=== PATIENT | male | born 1995 | race Caucasian/White ===

== ENCOUNTER 2018-11-10 17:14 | Observation (INO) | payer OTHER ==
[2018-11-10 17:31] VITALS: BMI 30.4
[2018-11-10] MEDS ORDERED: SODIUM CHLORIDE 1,000 ML IV STA (17:46)
--- NOTE | 2018-11-10 17:50 | PDOC ---
Attending Attestation - [facility] HPI: 11/10/18 18:29 The patient is a 23 year old male, with no significant past medical history, who presents to the emergency department via EMS after passing out on the train just prior to presentation. Today, he reports that he was on his way to into the city on the train when he felt dizzy and attempted to call 911. Before he was able to do so, he passed out and the next thing he remembers is EMS being on scene. He was subsequently brought to the emergency department for evaluation. The patient states that he does not remember if he hit his head when he passed out but notes that he woke up on the floor of the train. The patient reports that he was at a [employer] last night and was drinking heavily and does note that he felt some numbness of the fingers on his right hand upon waking up this morning. Currently in the emergency department, the patient is awake, alert and is following all commands. Documentation prepared by Miesha Pena, acting as medical billing clerk for Lurdes Alvarez MD. - Physicial Exam PE: 11/10/18 18:17 GENERAL: Alcohol on breath. Awake, alert, and fully oriented, in no acute distress. HEAD: No signs of trauma. EYES: PERRLA, EOMI, sclera anicteric, conjunctiva clear. ENT: Auricles normal inspection, hearing grossly normal, nares patent, oropharynx clear without exudates. Moist mucosa. NECK: Normal ROM, supple, no lymphadenopathy, JVD, or masses. LUNGS: Breath sounds equal, clear to auscultation bilaterally. No wheezes, and no crackles. HEART: Regular rate and rhythm, normal S1 and S2, no murmurs, rubs or gallops. ABDOMEN: Soft, nontender, normoactive bowel sounds. No guarding, no rebound. No masses. EXTREMITIES: Normal range of motion, no edema. No clubbing or cyanosis. No cords , erythema, or tenderness. NEUROLOGICAL: Subjective sensory deficits. Cranial nerves II through XII intact. Normal speech, follows all commands appropriately. Moving all extremities spontaneously. Strength is 5/5 in both the upper and lower extremities, no motor deficits. SKIN: Warm, dry, normal turgor, no rashes or lesions noted. Documentation prepared by Miesha Pena, acting as medical billing clerk for Lurdes Alvarez MD. <Miesha Stahl - Last Filed: 11/10/18 18:34> - Resident Resident Name: Marisa Reeves - ED Attending Attestation I have performed the following: I have examined & evaluated the patient, The case was reviewed & discussed with the resident, I agree w/resident's findings & plan, Exceptions are as noted - Medical Decision Making 11/10/18 21:22 23 yo male fainted on the train going from [place] to [facility]. Police were called and the patient was brought in [facility] ct scan head negative for any acute intracranial pathology c spine is negative for any acute fracture or subluxation alcohol level was only seven tox screen negative cbc is normal chemistries :normal renal function,normal glucose trop negative ekg NSR @ 70 bpm, 11/10/18 22:48 imp syncope vs ingestion of drug of abuse not found on our tox screening pt admitted <Lurdes Alvarez - Last Filed: 11/10/18 22:48>
[2018-11-10 18:21] LABS: BASO % 0.7 % (0-2.0); EOS % 2.6 % (0-4.5); HEMATOCRIT 46.1 % (35.4-49); HEMOGLOBIN 16.1 GM/dL (11.7-16.9); LYMPH % 19.3 % (8-40); MCH 32.6 pg (25.7-33.7); MCHC 34.9 g/dl (32.0-35.9); MEAN CELL VOLUME 93.5 fl (80-96); MEAN PLT VOLUME 9.7 fl (7.5-11.1); NEUT % 71.4 % (42.8-82.8); PLATELET COUNT 234 K/MM3 (134-434); RBC 4.93 M/mm3 (4.00-5.60); RDW 13.3 % (11.9-15.9)
--- NOTE | 2018-11-10 18:32 | PDOC ---
History of Present Illness - General Chief Complaint: Weakness Stated Complaint: SICK Time Seen by Provider: 11/10/18 17:22 History Source: Patient - History of Present Illness Initial Comments: 11/10/18 18:44 Pt is a 23yo M with PMH of asthma BIBA for syncope. Pt said he was [place] a [place] [facility] when he started to feel lightheaded. He stood up to call 911 but he passed out. Pt thinks he was not down for long but he woke up on the floor. He said at this time he felt "weird" and felt his vision going down. Pt states he drank a pint of vodka last night, denies drinking this morning, denies other drug use. Pt denies chest pain, SOB, abdominal pain, n/v/d, headache, changes in vision. He endorses vertigo since the fall which comes on and off. He also is complaining of R arm numbness, mainly in the 4th and 5th digits and going up the arm. PMD: none PMH: asthma PSH: none Allergies: nkda Social: alcohol use Past History - Past Medical History Allergies/Adverse Reactions: Allergies Allergy/AdvReac Type Severity Reaction Status Date / Time No Known Allergies Allergy Verified 11/10/18 17:54 Home Medications: Ambulatory Orders NK [No Known Home Medication] 11/10/18 Asthma: Yes COPD: No CHF: No DVT: No - Suicide/Smoking/Psychosocial Hx Smoking History: Current every day smoker Have you smoked in the past 12 months: No Number of Cigarettes Smoked Daily: 2 Information on smoking cessation initiated: No Hx Alcohol Use: No Drug/Substance Use Hx: No Review of Systems - Review of Systems Constitutional: No: Chills, Fever, Weakness HEENTM: No: Recent change in vision, Double Vision Respiratory: No: Cough, Shortness of Breath Cardiac (ROS): Yes: Chest Tightness. No: Chest Pain, Lightheadedness, Palpitations ABD/GI: No: Constipated, Diarrhea, Nausea, Rectal Bleeding, Vomiting, Abdominal cramping, Tarry Stools : No: Burning, Dysuria Musculoskeletal: No: Back Pain, Joint Pain, Muscle Pain, Neck Pain Integumentary: No: Bruising, Dryness, Erythema Neurological: Yes: See HPI, Numbness. No: Headache, Paresthesia, Tingling, Weakness *Physical Exam - Vital Signs Last Vital Signs Temp Pulse Resp BP Pulse Ox 98.7 F 78 16 135/84 100 11/10/18 17:15 18 17:15 18 17:15 18 17:15 11/10/18 17:15 - Physical Exam General Appearance: Yes: Nourished, Appropriately Dressed. No: Apparent Distress HEENT: positive: EOMI, KARLA, Normal ENT Inspection, Pharynx Normal Neck: positive: Trachea midline, Supple. negative: Lymphadenopathy (R), Lymphadenopathy (L) Respiratory/Chest: positive: Lungs Clear, Normal Breath Sounds. negative: Crackles, Rales, Rhonchi, Stridor, Wheezing Cardiovascular: positive: Regular Rhythm, Regular Rate, S1, S2. negative: Edema , JVD, Murmur Vascular Pulses: Carotid (R): 2+, Carotid (L): 2+, Dorsalis-Pedis (R): 2+, Doralis-Pedis (L): 2+ Gastrointestinal/Abdominal: positive: Normal Bowel Sounds, Soft. negative: Distended, Guarding, Rebound, Tenderness Musculoskeletal: positive: Other (Full ROM of R hand and arm. No focal weakness. ). negative: CVA Tenderness, Decreased Range of Motion Extremity: positive: Normal Capillary Refill, Pelvis Stable. negative: Pedal Edema, Swelling, Calf Tenderness Integumentary: positive: Normal Color, Dry, Warm Neurologic: positive: human intelligence II-XII NML intact, Fully Oriented, Alert, Normal Mood/ Affect, Normal Response, Motor Strength 5/5 Moderate Sedation - Procedure Monitoring Vital Signs: Procedure Monitoring Vital Signs Temperature 98.7 F 11/10/18 17:15 Pulse Rate 78 11/10/18 17:15 Respiratory Rate 16 11/10/18 17:15 Blood Pressure 135/84 11/10/18 17:15 O2 Sat by Pulse Oximetry (%) 100 11/10/18 17:15 ED Treatment Course - LABORATORY CBC & Chemistry Diagram: 11/10/18 18:00 11/10/18 18:00 - ADDITIONAL ORDERS Additional order review: Laboratory Results 11/10/18 17:50 Alcohol, Quantitative Cancelled 11/10/18 18:00 RBC 4.93 MCV 93.5 MCHC 34.9 RDW 13.3 MPV 9.7 Neutrophils % 71.4 Lymphocytes % 19.3 Monocytes % 6.0 Eosinophils % 2.6 Basophils % 0.7 - RADIOLOGY Radiology Studies Ordered: Category Date Time Status CERVICAL SPINE CT W/O CONTR [CT] Stat CT Scan 11/10/18 17:[address] WITHOUT CONTRAST [CT] Stat CT Scan 11/10/18 17:47 Ordered Medical Decision Making - Medical Decision Making 11/10/18 18:32 Pt is a 23yo M with PMH of asthma BIBA for syncope. Pt said he was [place] a [place] [facility] when he started to feel lightheaded. He stood up to call 911 but he passed out. Pt thinks he was not down for long but he woke up on the floor. He said at this time he felt "weird" and felt his vision going down. Pt states he drank a pint of vodka last night, denies drinking this morning, denies other drug use. Pt denies chest pain, SOB, abdominal pain, n/v/d, headache, changes in vision. He endorses vertigo since the fall which comes on and off. He also is complaining of R arm numbness, mainly in the 4th and 5th digits and going up the arm. Vitals: wnl PE: normal neurological exam, no vertebral tenderness. No nystagmus, vertigo not illicited with eye movements or head movements, full ROM and strength R arm and hand. endorses numbness in R 4th and 5th digit. DDx: syncope (vasovagal v. orthostatic v. arrhythmia v. neurologic), peripheral neuropathy Will order utox, alcohol level, basic labs. and Fluids. EKG ordered. EKG: nsr with sinus arrhythmia. Leads 2 and aVF show electrical activity in R wave. refusing fluids at this time. 11/10/18 19:29 Labs pending. Pt signed out to Dr. Kolb *DC/Admit/Observation/Transfer Diagnosis at time of Disposition: Syncope Qualifiers: Syncope type: unspecified Qualified Code(s): R55 - Syncope and collapse - Referrals - Patient Instructions - Post Discharge Activity
[2018-11-10 19:53] LABS: ALBUMIN 4.4 g/dl (3.4-5.0); ALK PHOS 109 U/L (45-117); ANION GAP 6 MMOL/L (8-16); BILIRUBIN,TOTAL 0.5 mg/dL (0.2-1); BLOOD UREA NITROGEN 13 mg/dL (7-18); CALCIUM 8.8 mg/dL (8.5-10.1); CHLORIDE 105 mmol/L (98-107); CO2 26 mmol/L (21-32); GLUCOSE,RANDOM 82 mg/dL (74-106); SGPT/ALT 33 U/L (13-61); SODIUM 137 mmol/L (136-145)
[2018-11-10 20:14] LABS: MAGNESIUM 2.1 mg/dL (1.8-2.4); SGOT/AST 34 U/L (15-37)
[2018-11-10 20:42] LABS: COCAINE, UR NEGATIVE ng/ml (CUTOFF=300); METHADONE, UR NEGATIVE ng/ml (CUTOFF=300); OPIATES, URI NEGATIVE ng/ml (CUTOFF=300); PHENCYCLIDINE,URINE NEGATIVE ng/ml (CUTOFF=25); URINE AMPHETAMINES NEGATIVE ng/ml (CUTOFF=500); URINE BARBITURATES NEGATIVE ng/ml (CUTOFF=200); URINE BENZODIAZEPINES NEGATIVE ng/ml (CUTOFF=200)
--- NOTE | 2018-11-10 22:17 | PN ---
Teaching Attending Note Name of Resident: Nico Jasmine ATTENDING PHYSICIAN STATEMENT I saw and evaluated the patient. I reviewed the resident's note and discussed the case with the resident. I agree with the resident's findings and plan as documented. SUBJECTIVE: Seen and examined; please see resident note for further documentation. In essence, this patient had syncope when riding the train after drinking a bottle of vodka; he stated was yesterday but his EtOH was + in ER. He had 2 episodes so came in for assessment. No h/o WPW in family. EKG with likely brisk septal depolarization and normal [place] and QRS intervals. There was concern for dropped beat on tele. No CP, SOB, etc. 10 sys ROS done and neg aside HPI PMH and PSH reviewed FH asked and noncontributory Socially pending Utox, +EtOh Medications reviewed OBJECTIVE: VS, labs, imaging reviewed RRR s1/2 no mgr Lungs CTAB w/ sym exp CN2-12 wnl, no fnd Normal mood, appropriate behavior Labs unremarkable EKG shows NSR with unremarkable intervals with what appears to be brisk septal depolarization Tele reviewed ASSESSMENT AND PLAN: Patient presents with syncope after drinking alcohol; there was concern if he had WPW or dropped beats 1) Syncope -Suspecting potential alcohol-contribution given the history and +EtOH level. He had a L of fluid before orthostatics could be checked making them less reliable. -WPW less likley given the normal AZ interval, etc. Brisk septal depolarization can be construed as slurring; argues against WPW alongside the intervals. -Dropped beats can occur in nonpathological matter; will monitor tele overnight and d/w CV. May need holter at home. 2) EtOH Use -Recommend stopping drinking. Full Code
--- NOTE | 2018-11-10 22:21 | HP ---
CHIEF COMPLAINT: syncope PCP: HISTORY OF PRESENT ILLNESS: Patient is a 23 y/o M w/ PMHx asthma, controlled w/ rarely used albuterol inhaler, p/w episode of syncope while traveling on train from [place] to [facility] earlier today. Reports feeling warm just prior to event and losing consciousness. Was not disoriented after, denies convulsions, tongue-biting, incontinence. Denies CP, SOB. Has never had similar episode previously. Does report intermittent numbness of the 4th digit of the hand b/l (but not concurrently). Otherwise no further associated symptoms, ROS negative. Reports drinking 1 pint of vodka the previous night. Received 1L NS bolus in ED. Labs are unremarkable, UTox negative, alcohol level 7. CT head and CT c-spine both negative. EKG demonstrates delta waves and dropped beat in lead II, however w/ normal intervals concern for WPW is low. ER course was notable for: (1) EKG: delta waves and dropped beat in lead II (2) imaging negative (3) labs wnl Recent Travel: PAST MEDICAL HISTORY: As per HPI PAST SURGICAL HISTORY: As per HPI Social History: Smoking: Denies Alcohol: Yes Drugs: Denies Family History: Allergies No Known Allergies Allergy (Verified 11/10/18 17:54) HOME MEDICATIONS: Home Medications Medication Instructions Recorded NK [No Known Home Medication] 11/10/18 REVIEW OF SYSTEMS PHYSICAL EXAMINATION Vital Signs - 24 hr 11/10/18 11/10/18 17:15 21:25 Temperature 98.7 F 98.8 F Pulse Rate 78 Pulse Rate [ 69 Left Apical] Respiratory 16 18 Rate Blood Pressure 135/84 Blood Pressure 125/71 [Left] O2 Sat by Pulse 100 98 Oximetry (%) GENERAL: A&Ox3, NAD HEAD: NC/AT EYES: PERRLA, EOMI EARS, NOSE, THROAT: MMM NECK: Normal range of motion, supple without lymphadenopathy, JVD, or masses. LUNGS: CTA b/l HEART: Premature/arrhythmic beat every ~8-10 cardiac cycles, normal rate, no m/r /g ABDOMEN: +bs, soft, NT, ND MUSCULOSKELETAL: Normal range of motion at all joints. No bony deformities or tenderness. No CVA tenderness. UPPER EXTREMITIES: 2+ pulses, warm, well-perfused. No cyanosis. No clubbing. No peripheral edema. LOWER EXTREMITIES: 2+ pulses, warm, well-perfused. No calf tenderness. No peripheral edema. NEUROLOGICAL: senior database engineer, motor, sensory systems w/o focal deficit PSYCHIATRIC: Cooperative. Good eye contact. Appropriate mood and affect. SKIN: Warm, dry, normal turgor, no rashes or lesions noted, normal capillary refill. Laboratory Results - last 24 hr 11/10/18 11/10/18 11/10/18 17:50 18:00 18:00 WBC 9.0 RBC 4.93 Hgb 16.1 Hct 46.1 MCV 93.5 MCH 32.6 MCHC 34.9 RDW 13.3 Plt Count 234 MPV 9.7 Absolute Neuts (auto) 6.4 Neutrophils % 71.4 Lymphocytes % 19.3 Monocytes % 6.0 Eosinophils % 2.6 Basophils % 0.7 Nucleated RBC % 0 Sodium Cancelled Potassium Cancelled Chloride Cancelled Carbon Dioxide Cancelled Anion Gap Cancelled BUN Cancelled Creatinine Cancelled Creat Clearance w eGFR Cancelled Random Glucose Cancelled Calcium Cancelled Magnesium Cancelled Total Bilirubin Cancelled AST Cancelled ALT Cancelled Alkaline Phosphatase Cancelled Creatine Kinase Creatine Kinase Index CK-MB (CK-2) Troponin I Total Protein Cancelled Albumin Cancelled Opiates Screen Methadone Screen Barbiturate Screen Phencyclidine Screen Ur Amphetamines Screen MDMA (Ecstasy) Screen Benzodiazepines Screen Cocaine Screen U Marijuana (THC) Screen Alcohol, Quantitative Cancelled 11/10/18 11/10/18 11/10/18 18:00 18:16 18:38 WBC RBC Hgb Hct MCV MCH MCHC RDW Plt Count MPV Absolute Neuts (auto) Neutrophils % Lymphocytes % Monocytes % Eosinophils % Basophils % Nucleated RBC % Sodium 137 Potassium 5.0 Chloride 105 Carbon Dioxide 26 Anion Gap 6 L BUN 13 Creatinine 1.0 Creat Clearance w eGFR > 60 Random Glucose 82 Calcium 8.8 Magnesium 2.1 Total Bilirubin 0.5 AST 34 ALT 33 Alkaline Phosphatase 109 Creatine Kinase Cancelled Cancelled 375 H Creatine Kinase Index 0.5 CK-MB (CK-2) 1.9 Troponin I Cancelled Cancelled < 0.02 Total Protein 8.0 Albumin 4.4 Opiates Screen Methadone Screen Barbiturate Screen Phencyclidine Screen Ur Amphetamines Screen MDMA (Ecstasy) Screen Benzodiazepines Screen Cocaine Screen U Marijuana (THC) Screen Alcohol, Quantitative 22.5 H 7.0 H 11/10/18 20:14 WBC RBC Hgb Hct MCV MCH MCHC RDW Plt Count MPV Absolute Neuts (auto) Neutrophils % Lymphocytes % Monocytes % Eosinophils % Basophils % Nucleated RBC % Sodium Potassium Chloride Carbon Dioxide Anion Gap BUN Creatinine Creat Clearance w eGFR Random Glucose Calcium Magnesium Total Bilirubin AST ALT Alkaline Phosphatase Creatine Kinase Creatine Kinase Index CK-MB (CK-2) Troponin I Total Protein Albumin Opiates Screen Negative Methadone Screen Negative Barbiturate Screen Negative Phencyclidine Screen Negative Ur Amphetamines Screen Negative MDMA (Ecstasy) Screen Negative Benzodiazepines Screen Negative Cocaine Screen Negative U Marijuana (THC) Screen Negative Alcohol, Quantitative ASSESSMENT/PLAN: 23 y/o M w/ PMHx asthma not currently active, p/w first time incident of syncope. #syncope -no evidence of induction by illicit substances -no relevant medication use -EKG showing dropped beat and delta waves in lead II, however [place] and QRS nl, more likely brisk septal depolarization than WPW -repeat EKG pending -imaging negative -cardiology consulted -cardiac monitoring -repeat routine labs -no further intervention at this time #FEN -no IVF -monitor lytes -regular diet #PPx -DVT: SCDs -GI: not indicated #code -full #dispo -tele obs Visit type - Emergency Visit Emergency Visit: Yes ED Registration Date: 11/10/18 Care time: The patient presented to the Emergency Department on the above date and was hospitalized for further evaluation of their emergent condition. - New Patient This patient is new to me today: Yes Date on this admission: 11/11/18 - Critical Care Critical Care patient: No
[2018-11-11 06:38] LABS: INR 0.99 (0.83-1.09); PROTHROMBIN TIME (PATIENT) 11.7 SEC (9.7-13.0)
[2018-11-11 06:41] LABS: ACTIVATED PTT 28.9 SECONDS (25.2-36.5)
[2018-11-11 07:02] LABS: ANION GAP 6 MMOL/L (8-16); BLOOD UREA NITROGEN 16 mg/dL (7-18); CALCIUM 8.3 mg/dL (8.5-10.1); CHLORIDE 106 mmol/L (98-107); CO2 27 mmol/L (21-32); GLUCOSE,RANDOM 93 mg/dL (74-106); PHOSPHOROUS 4.9 mg/dL (2.5-4.9); POTASSIUM 4.1 mmol/L (3.5-5.1); SODIUM 139 mmol/L (136-145)
[2018-11-11 09:27] LABS: BASO % 0.5 % (0-2.0); EOS % 3.4 % (0-4.5); HEMATOCRIT 44.3 % (35.4-49); HEMOGLOBIN 14.4 GM/dL (11.7-16.9); MCH 30.9 pg (25.7-33.7); MCHC 32.6 g/dl (32.0-35.9); MEAN CELL VOLUME 94.6 fl (80-96); MEAN PLT VOLUME 9.8 fl (7.5-11.1); MONO % 7.9 % (3.8-10.2); NEUT % 53.2 % (42.8-82.8); PLATELET COUNT 205 K/MM3 (134-434); RBC 4.68 M/mm3 (4.00-5.60); RDW 13.5 % (11.9-15.9); WHITE BLOOD COUNT 7.4 K/mm3 (4.0-10.0)
--- NOTE | 2018-11-11 09:49 | EKG ---
Test Reason : Blood Pressure : / mmHG Vent. Rate : 081 BPM Atrial Rate : 081 BPM P-R Int : 166 ms QRS Dur : 118 ms QT Int : 382 ms P-R-T Axes : 046 009 016 degrees QTc Int : 443 ms NORMAL SINUS RHYTHM RSR' OR QR PATTERN IN V1 SUGGESTS RIGHT VENTRICULAR CONDUCTION DELAY NONSPECIFIC ST AND T WAVE ABNORMALITY ABNORMAL ECG NO PREVIOUS ECGS AVAILABLE Confirmed by MARY ELLEN SHAHID MD ([id number]) on 11/11/2018 9:49:12 AM Referred By: Confirmed By:MARY ELLEN SHAHID MD
--- NOTE | 2018-11-11 09:51 | EKG ---
Test Reason : Blood Pressure : / mmHG Vent. Rate : 070 BPM Atrial Rate : 070 BPM P-R Int : 168 ms QRS Dur : 098 ms QT Int : 396 ms P-R-T Axes : 031 018 022 degrees QTc Int : 427 ms NORMAL SINUS RHYTHM WITH SINUS ARRHYTHMIA ST ELEVATION, CONSIDER EARLY REPOLARIZATION BORDERLINE ECG NO PREVIOUS ECGS AVAILABLE Confirmed by KLEBER DOSS, MARY ELLEN ([id number]) on 11/11/2018 9:50:37 AM Referred By: Confirmed By:MARY ELLEN SHAHID MD
--- NOTE | 2018-11-11 10:15 | CON.CARD ---
Consult Consult Specialty:: Cardiology Referred by:: Hospitalist Medicine Reason for Consultation:: Syncope - History of Present Illness Chief Complaint: Syncope History of Present Illness: Patient is a 23 year old male h/o asthma presented with syncope when riding the train after drinking a bottle of vodka, he described prodromal sxs of near syncope, flushing and diaphoresis, patient denies exertional chest pain, palpitations, syncope, orthopnea, PND or LE edema, no events on telemetry thus far. 10 sys ROS done and neg aside HPI PMH and PSH reviewed FH asked and neg for premature CAD or SCD Socially pending Utox, +EtOh Medications reviewed - History Source History Provided By: Patient Limitations to Obtaining History: No Limitations - Alcohol/Substance Use Hx Alcohol Use: No - Smoking History Smoking history: Current every day smoker Have you smoked in the past 12 months: No Aproximately how many cigarettes per day: 2 Home Medications - Allergies Allergies/Adverse Reactions: Allergies Allergy/AdvReac Type Severity Reaction Status Date / Time No Known Allergies Allergy Verified 11/10/18 17:54 - Home Medications Home Medications: Ambulatory Orders NK [No Known Home Medication] 11/10/18 Review of Systems - Review of Systems Constitutional: reports: Diaphoresis Neurological: reports: Dizziness, Syncope Vital Signs: Vital Signs Temperature 97.7 F 11/11/18 08:48 Pulse Rate 63 11/11/18 08:48 Respiratory Rate 14 11/11/18 08:49 Blood Pressure 123/76 11/11/18 08:48 O2 Sat by Pulse Oximetry (%) 97 11/11/18 08:49 Constitutional: Yes: No Distress, Calm, Thin Neck: Yes: Supple Respiratory: Yes: Regular, CTA Bilaterally Gastrointestinal: Yes: Normal Bowel Sounds, Soft Cardiovascular: Yes: Regular Rate and Rhythm JVD: No Carotid Bruit: No Heart Sounds: Yes: S1, S2 Edema: No - Other Data Labs, Other Data: CBC, BMP 11/11/18 05:30 11/11/18 05:30 INR, PTT INR 0.99 (0.83-1.09) 11/11/18 05:30 Troponin, BNP 11/10/18 11/10/18 11/10/18 18:00 18:16 18:38 Troponin I Cancelled Cancelled < 0.02 11/11/18 11/11/18 00:15 05:30 Troponin I < 0.02 < 0.02 Troponin, BNP 11/10/18 11/10/18 11/10/18 18:00 18:16 18:38 Troponin I Cancelled Cancelled < 0.02 11/11/18 11/11/18 00:15 05:30 Troponin I < 0.02 < 0.02 NSR @ 70 with sinus arrhythmia and early repolarization Tele: SR, PAC no pauses Imaging - Results Cat Scan: Report Reviewed (No acute changes) Problem List - Problems (1) Alcohol intoxication Code(s): F10.929 - ALCOHOL USE, UNSPECIFIED WITH INTOXICATION, UNSPECIFIED Qualifiers: Complication of substance-induced condition: uncomplicated Qualified Code(s ): F10.920 - Alcohol use, unspecified with intoxication, uncomplicated (2) Premature atrial contraction Code(s): I49.1 - ATRIAL PREMATURE DEPOLARIZATION (3) Syncope Code(s): R55 - SYNCOPE AND COLLAPSE Qualifiers: Syncope type: vasovagal syncope Qualified Code(s): R55 - Syncope and collapse Assessment/Plan 1. Syncope preceded by typical prodromal symptoms c/w vasovagal etiology in context of 2. Alcohol intoxication 3. Asthma P:1. Symptoms improved after volume rescucitation, monitor telemetry and f/u echo results already ordered 2. ETOH abstinence recommended 3. Counselled on abortive maneuvers once prodromal sxs have been experienced 4. Further recommendations to follow after review of above results 5. Thank you for consultative opportunity
--- NOTE | 2018-11-11 10:59 | ECHO ---
Name: KNOWLEDGE TIFFANY Exam:Adult Echocardiogram Study Date: 11/11/2018 09:10 AM Age: 23 yrs Reason For Study: SYNCOPE Height: 76 in Weight: 250 lb BSA: 2.4 m2 MMode/2D Measurements & Calculations IVSd: 0.98 cm Ao root diam: 3.3 cm LVIDd: 5.5 cm LA dimension: 3.6 cm LVIDs: 3.6 cm LVPWd: 0.98 cm EDV(Teich): 146.5 ml LAV (MOD-bp): 53.4 ml ESV(Teich): 55.1 ml Doppler Measurements & Calculations MV E max kodak: 81.0 cm/sec TR max kodak: 211.4 cm/sec MV A max kodak: 45.6 cm/sec TR max P.9 mmHg MV E/A: 1.8 MV dec time: 0.17 sec Med Peak E' Kodak: 12.2 cm/sec PI Vmax: 183.2 cm/sec Med E/e': 6.6 Lat Peak E' Kodak: 16.0 cm/sec Lat E/e': 5.1 Procedure A complete two-dimensional transthoracic echocardiogram was performed (2D, M-mode, Doppler and color flow Doppler). Left Ventricle The left ventricle is normal in size. Left ventricular systolic function is normal. Ejection Fraction = 60- 65%. No regional wall motion abnormalities noted. Right Ventricle The right ventricle is normal size. The right ventricular systolic function is normal. Atria The left atrial size is normal. LA volume index is 22 ml/m2. Right atrial size is normal. Mitral Valve There is mild mitral annular calcification. There is no mitral regurgitation noted. Tricuspid Valve The tricuspid valve is normal in structure and function. There is mild tricuspid regurgitation. Right ventricular systolic pressure is normal. Aortic Valve The aortic valve is normal in structure and function. No aortic regurgitation is present. Pulmonic Valve The pulmonic valve is not well visualized. Great Vessels The aortic root is normal size. Pericardium/Pleura There is no pericardial effusion. Interpretation Summary The left ventricle is normal in size. Left ventricular systolic function is normal. No regional wall motion abnormalities noted. Ejection Fraction = 60-65%. The right ventricular systolic function is normal. The left atrial size is normal. Right atrial size is normal. There is mild mitral annular calcification. There is mild tricuspid regurgitation. There is no pericardial effusion. No previous study is available for comparison Prosper Alvarez MD 11/11/2018 10:58 AM
--- NOTE | 2018-11-11 16:14 | DS ---
Physical Exam: SUBJECTIVE: Patient seen and examined at bedside. No overnight events. Denies acute complaints. Denies recurrence of lightheadedness, or any syncopal episodes. OBJECTIVE: Vital Signs Period Temp Pulse Resp BP Sys/Acuña Pulse Ox Last 24 Hr 97.7 F-98.8 F 63-86 14-20 123-159/68-93 97-100 PHYSICAL EXAM GENERAL: The patient is awake, alert, and fully oriented, in no acute distress. HEAD: Normal with no signs of trauma. EYES: PERRL, extraocular movements intact, sclera anicteric, conjunctiva clear. ENT: Ears normal, nares patent, oropharynx clear without exudates, moist mucous membranes. NECK: Trachea midline, full range of motion, supple. LUNGS: Breath sounds equal, clear to auscultation bilaterally, no wheezes, no crackles, no accessory muscle use. HEART: Regular rate and rhythm, S1, S2 without murmur, rub or gallop. ABDOMEN: Soft, nontender, nondistended, normoactive bowel sounds, no guarding, no rebound, no hepatosplenomegaly, no masses. EXTREMITIES: 2+ radial and dorsalis pedis pulses b/l. warm, well-perfused, no edema. NEUROLOGICAL: Cranial nerves II through XII grossly intact. Normal speech. Strength 5/5 b/l upper and lower extremities. No gross focal deficits. PSYCH: Normal mood, normal affect upon my encounter today. SKIN: Warm, dry, normal turgor, no rashes or lesions noted. LABS Laboratory Results - last 24 hr 11/10/18 11/10/18 11/10/18 17:50 18:00 18:00 WBC 9.0 RBC 4.93 Hgb 16.1 Hct 46.1 MCV 93.5 MCH 32.6 MCHC 34.9 RDW 13.3 Plt Count 234 MPV 9.7 Absolute Neuts (auto) 6.4 Neutrophils % 71.4 Lymphocytes % 19.3 Monocytes % 6.0 Eosinophils % 2.6 Basophils % 0.7 Nucleated RBC % 0 PT with INR INR PTT (Actin FS) Sodium Cancelled Potassium Cancelled Chloride Cancelled Carbon Dioxide Cancelled Anion Gap Cancelled BUN Cancelled Creatinine Cancelled Creat Clearance w eGFR Cancelled Random Glucose Cancelled Calcium Cancelled Phosphorus Magnesium Cancelled Total Bilirubin Cancelled AST Cancelled ALT Cancelled Alkaline Phosphatase Cancelled Creatine Kinase Creatine Kinase Index CK-MB (CK-2) Troponin I Total Protein Cancelled Albumin Cancelled Opiates Screen Methadone Screen Barbiturate Screen Phencyclidine Screen Ur Amphetamines Screen MDMA (Ecstasy) Screen Benzodiazepines Screen Cocaine Screen U Marijuana (THC) Screen Alcohol, Quantitative Cancelled 11/10/18 11/10/18 11/10/18 18:00 18:16 18:38 WBC RBC Hgb Hct MCV MCH MCHC RDW Plt Count MPV Absolute Neuts (auto) Neutrophils % Lymphocytes % Monocytes % Eosinophils % Basophils % Nucleated RBC % PT with INR INR PTT (Actin FS) Sodium 137 Potassium 5.0 Chloride 105 Carbon Dioxide 26 Anion Gap 6 L BUN 13 Creatinine 1.0 Creat Clearance w eGFR > 60 Random Glucose 82 Calcium 8.8 Phosphorus Magnesium 2.1 Total Bilirubin 0.5 AST 34 ALT 33 Alkaline Phosphatase 109 Creatine Kinase Cancelled Cancelled 375 H Creatine Kinase Index 0.5 CK-MB (CK-2) 1.9 Troponin I Cancelled Cancelled < 0.02 Total Protein 8.0 Albumin 4.4 Opiates Screen Methadone Screen Barbiturate Screen Phencyclidine Screen Ur Amphetamines Screen MDMA (Ecstasy) Screen Benzodiazepines Screen Cocaine Screen U Marijuana (THC) Screen Alcohol, Quantitative 22.5 H 7.0 H 11/10/18 11/11/18 11/11/18 20:14 00:15 05:30 WBC 7.4 RBC 4.68 Hgb 14.4 Hct 44.3 MCV 94.6 MCH 30.9 MCHC 32.6 RDW 13.5 Plt Count 205 MPV 9.8 Absolute Neuts (auto) 3.9 Neutrophils % 53.2 D Lymphocytes % 35.0 D Monocytes % 7.9 Eosinophils % 3.4 Basophils % 0.5 Nucleated RBC % 0 PT with INR INR PTT (Actin FS) Sodium Potassium Chloride Carbon Dioxide Anion Gap BUN Creatinine Creat Clearance w eGFR Random Glucose Calcium Phosphorus Magnesium Total Bilirubin AST ALT Alkaline Phosphatase Creatine Kinase Creatine Kinase Index CK-MB (CK-2) Troponin I < 0.02 Total Protein Albumin Opiates Screen Negative Methadone Screen Negative Barbiturate Screen Negative Phencyclidine Screen Negative Ur Amphetamines Screen Negative MDMA (Ecstasy) Screen Negative Benzodiazepines Screen Negative Cocaine Screen Negative U Marijuana (THC) Screen Negative Alcohol, Quantitative 12/17/18 12/17/18 12/17/18 05:30 05:30 05:30 WBC RBC Hgb Hct MCV MCH MCHC RDW Plt Count MPV Absolute Neuts (auto) Neutrophils % Lymphocytes % Monocytes % Eosinophils % Basophils % Nucleated RBC % PT with INR 11.70 INR 0.99 PTT (Actin FS) 28.9 Sodium 139 Potassium 4.1 Chloride 106 Carbon Dioxide 27 Anion Gap 6 L BUN 16 Creatinine 1.0 Creat Clearance w eGFR > 60 Random Glucose 93 Calcium 8.3 L Phosphorus 4.9 Magnesium 2.0 Total Bilirubin AST ALT Alkaline Phosphatase Creatine Kinase Creatine Kinase Index CK-MB (CK-2) Troponin I < 0.02 Total Protein Albumin Opiates Screen Methadone Screen Barbiturate Screen Phencyclidine Screen Ur Amphetamines Screen MDMA (Ecstasy) Screen Benzodiazepines Screen Cocaine Screen U Marijuana (THC) Screen Alcohol, Quantitative HOSPITAL COURSE: Date of Admission:11/10/18 Date of Discharge: 11/11/18 Patient is a 23 year old male with history of asthma presenting with complaint of syncopal episode. EKG showed normal sinus rhythm with sinus arrhythmia at rate of 70 BPM. Cardiac echo showed EF 65% without LV wall motion abnormalities. Patient endorsed resolution of the syncopal episode, without any further episodes while hospitalized. Case discussed with cardiology who cleared patient for discharge. Discharged home with referral to primary care provider ( Referral to Dr. Morin, and cardiology, Dr. Sanchez. Discussed to [facility] if patient feels similar symptoms, and to immediately call 911 to return to ED. Counselled to abstain from alcohol. Prescribed Albuterol rescue inhaler for asthma. Instructed to return to Ed if any chest pain, palpitations, shortness of breath, lightheadedness, dizziness, changes in vision, or worsening symptoms. Minutes to complete discharge: 35 Discharge Summary Reason For Visit: SYNCOPE Current Active Problems Alcohol intoxication (Acute) Premature atrial contraction (Acute) Syncope (Acute) Condition: Stable - Instructions Diet, Activity, Other Instructions: Hospital Course You were admitted due to an episode of loss of consciousness. Your CT scan of your head, and neck showed no fractures, and no bleeding within the head. Your echocardiogram showed no concerning heart abnormalities. Your were on cardiac monitoring and seen by hydrometer tester (heart doctor) who has cleared for discharge. Follow up appointments: You will follow up with your primary care physician within the next 2-3 days. You will follow up with hydrometer tester Dr. Sanchez within one week of discharge. Post- hospitalization care: Continue taking your home medications as directed. Please return to the nearest Emergency Department if you experience similar symptoms, headache, changes in vision, fall, loss of consciousness, chest pain or pressure, palpitations, abdominal pain, nausea, vomiting. Referrals: Clifton Morin MD [Staff Physician] - 1 Week (Dr. Acharya, Sunday.) Placido Sanchez MD [Staff Physician] - 1 Week Disposition: HOME - Home Medications Comprehensive Discharge Medication List: Ambulatory Orders Albuterol Sulfate Inhaler - [Ventolin Hfa Inhaler -] 2 inh PO Q6H 11/11/18 This patient is new to me today: Yes Date on this admission: 11/11/18 Emergency Visit: Yes ED Registration Date: 11/10/18 Care time: The patient presented to the Emergency Department on the above date and was hospitalized for further evaluation of their emergent condition. Critical Care patient: No - Discharge Referral Referred to [facility] Med P.C.: No
[2018-11-11 17:47] VITALS: BP 144/90; PULSE 74; TEMP 97.7
--- NOTE | 2018-11-11 18:36 | PN ---
Teaching Attending Note Name of Resident: Renard Acharya ATTENDING PHYSICIAN STATEMENT I saw and evaluated the patient. I reviewed the resident's note and discussed the case with the resident. I agree with the resident's findings and plan as documented. SUBJECTIVE: Feels well - no further syncopal episodes. No chest pain/palps/ lightheadedness/diaphoresis. OBJECTIVE: Afebrile, Hemodynamically stable Last Vital Signs Temp Pulse Resp BP Pulse Ox 97.7 F 74 20 144/90 97 11/11/18 17:00 11/11/18 17:00 11/11/18 17:00 11/11/18 17:00 11/11/18 14:00 HEENT - Atraumatic, Normocephalic Heart - S1, S2, RRR Lungs - clear to auscultation, no crackles/wheeze Abdomen - soft, non-tender. Bowel Sounds normal. Extremities - no edema, no calf tenderness. Neuro - AAO x 3. Tone/Power normal all 4 extremities. Laboratory Results - last 24 hr 11/10/18 11/10/18 11/10/18 18:00 18:00 18:16 WBC RBC Hgb Hct MCV MCH MCHC RDW Plt Count MPV Absolute Neuts (auto) Neutrophils % Lymphocytes % Monocytes % Eosinophils % Basophils % Nucleated RBC % PT with INR INR PTT (Actin FS) Sodium Cancelled Potassium Cancelled Chloride Cancelled Carbon Dioxide Cancelled Anion Gap Cancelled BUN Cancelled Creatinine Cancelled Creat Clearance w eGFR Cancelled Random Glucose Cancelled Calcium Cancelled Phosphorus Magnesium Cancelled Total Bilirubin Cancelled AST Cancelled ALT Cancelled Alkaline Phosphatase Cancelled Creatine Kinase Cancelled Cancelled Creatine Kinase Index CK-MB (CK-2) Troponin I Cancelled Cancelled Total Protein Cancelled Albumin Cancelled Opiates Screen Methadone Screen Barbiturate Screen Phencyclidine Screen Ur Amphetamines Screen MDMA (Ecstasy) Screen Benzodiazepines Screen Cocaine Screen U Marijuana (THC) Screen Alcohol, Quantitative 22.5 H 11/10/18 11/10/18 11/11/18 18:38 20:14 00:15 WBC RBC Hgb Hct MCV MCH MCHC RDW Plt Count MPV Absolute Neuts (auto) Neutrophils % Lymphocytes % Monocytes % Eosinophils % Basophils % Nucleated RBC % PT with INR INR PTT (Actin FS) Sodium 137 Potassium 5.0 Chloride 105 Carbon Dioxide 26 Anion Gap 6 L BUN 13 Creatinine 1.0 Creat Clearance w eGFR > 60 Random Glucose 82 Calcium 8.8 Phosphorus Magnesium 2.1 Total Bilirubin 0.5 AST 34 ALT 33 Alkaline Phosphatase 109 Creatine Kinase 375 H Creatine Kinase Index 0.5 CK-MB (CK-2) 1.9 Troponin I < 0.02 < 0.02 Total Protein 8.0 Albumin 4.4 Opiates Screen Negative Methadone Screen Negative Barbiturate Screen Negative Phencyclidine Screen Negative Ur Amphetamines Screen Negative MDMA (Ecstasy) Screen Negative Benzodiazepines Screen Negative Cocaine Screen Negative U Marijuana (THC) Screen Negative Alcohol, Quantitative 7.0 H 11/11/1818 11/11/18 05:30 05:30 05:30 WBC 7.4 RBC 4.68 Hgb 14.4 Hct 44.3 MCV 94.6 MCH 30.9 MCHC 32.6 RDW 13.5 Plt Count 205 MPV 9.8 Absolute Neuts (auto) 3.9 Neutrophils % 53.2 D Lymphocytes % 35.0 D Monocytes % 7.9 Eosinophils % 3.4 Basophils % 0.5 Nucleated RBC % 0 PT with INR 11.70 INR 0.99 PTT (Actin FS) 28.9 Sodium 139 Potassium 4.1 Chloride 106 Carbon Dioxide 27 Anion Gap 6 L BUN 16 Creatinine 1.0 Creat Clearance w eGFR > 60 Random Glucose 93 Calcium 8.3 L Phosphorus 4.9 Magnesium 2.0 Total Bilirubin AST ALT Alkaline Phosphatase Creatine Kinase Creatine Kinase Index CK-MB (CK-2) Troponin I Total Protein Albumin Opiates Screen Methadone Screen Barbiturate Screen Phencyclidine Screen Ur Amphetamines Screen MDMA (Ecstasy) Screen Benzodiazepines Screen Cocaine Screen U Marijuana (THC) Screen Alcohol, Quantitative 11/11/18 05:30 WBC RBC Hgb Hct MCV MCH MCHC RDW Plt Count MPV Absolute Neuts (auto) Neutrophils % Lymphocytes % Monocytes % Eosinophils % Basophils % Nucleated RBC % PT with INR INR PTT (Actin FS) Sodium Potassium Chloride Carbon Dioxide Anion Gap BUN Creatinine Creat Clearance w eGFR Random Glucose Calcium Phosphorus Magnesium Total Bilirubin AST ALT Alkaline Phosphatase Creatine Kinase Creatine Kinase Index CK-MB (CK-2) Troponin I < 0.02 Total Protein Albumin Opiates Screen Methadone Screen Barbiturate Screen Phencyclidine Screen Ur Amphetamines Screen MDMA (Ecstasy) Screen Benzodiazepines Screen Cocaine Screen U Marijuana (THC) Screen Alcohol, Quantitative ASSESSMENT AND PLAN: 23 year old male smoker with history of Asthma admitted after syncopal episode while on train with preceeding flushing, lightheadedness and diaphoresis without chest pain/palpitations. Patient had been consuming alcohol over 24 hours prior. 1) Syncope, likely vasovagal CT Head negative for acute intracranial findings. ECG - Sinus arrhythmia with early repolarization. Telemetry - Sinus Arrhythmia with PVCs Troponin neg x 3. Echo - normal. Evaluated by Cardiology, felt to be a vasovagal episode, with no further in- patient monitoring or investigation required. Medically stable for discharge with PCP follow up.
== END 2018-11-11 17:51 | disposition home or self-care (01) ==
LOC: JER 17:14 → JERBED 21:44 → J4W 23:44
PROVIDERS: ADMIT Internal Medicine
PROC: 3E0337Z Introduction of Electrolytic and Water Balance Substance into Peripheral Vein, Percutaneous Approach (ICD-10-PCS; principal; 2018-11-10)
DX: R55 Syncope and collapse (principal); F10.920 Alcohol use, unspecified with intoxication, uncomplicated; I49.1 Atrial premature depolarization
CPT/HCPCS: 36415; 70450-TC; 72125-TC; 80048; 80053; 80307; 82550; 82553; 83735; 84100; 84484; 85025; 85610; 85730; 93005; 93010; 93306-TC; 99285-25; G0378; J7030